=== PATIENT | male | born 1970 | race Caucasian/White ===

== ENCOUNTER 2018-10-18 16:14 | Emergency (ER) | payer OTHER ==
[~2018-10-18] VITALS: Ht 172.7 cm; Wt 73.1 kg
[~2018-10-18 16:14] MED LIST: ALPR1TAB2
[2018-10-18 16:32] VITALS: BP 155/111
--- NOTE | 2018-10-18 16:34 | NUR ---
PT AMBULATED TO BED 04.
--- NOTE | 2018-10-18 16:40 | NUR ---
BIB SELF. SEND BY PMD WITH ABNORMAL EKG, EXTREME FATIGUE, WEAKNESS, NON RADIATING LT SIDED CP X 5 DAYS. DENIES SOB. HX; HTN. RX; LISINOPRIL. PATIENT STATES PAIN OF 8/10 AT THIS TIME. PATIENT POSITIONED FOR COMFORT; HOB ELEVATED; BEDRAILS UP X2; BED DOWN. ER MD MADE AWARE OF PT STATUS.
[2018-10-18] MEDS ORDERED: NACL 0.9% 1,000 ML IV ONE (17:17)
--- NOTE | 2018-10-18 17:25 | NUR ---
X RAY AT BEDSIDE
[2018-10-18 17:39] LABS: BASOPHILS # (AUTO) 0.1 K/uL (0.00-0.22); BASOPHILS % (AUTO) 0.8 % (0.0-2.0); EOSINOPHILS # (AUTO) 0.1 K/uL (0-0.4); EOSINOPHILS % (AUTO) 1.9 % (0.0-4.0); HEMATOCRIT 40.1 % (36-52); HEMOGLOBIN 13.7 g/dL (12.0-18.0); LYMPHOCYTES # (AUTO) 1.8 K/uL (2.0-11.5); LYMPHOCYTES % (AUTO) 23.1 % (20.5-51.1); MEAN CORPUSCULAR HEMOGLOBIN 33 pg (27-31); MEAN CORPUSCULAR HGB CONC 34 g/dL (33-37); MEAN CORPUSCULAR VOLUME 95.4 fL (80-94); MONOCYTES # (AUTO) 0.5 K/uL (0.8-1.0); MONOCYTES % (AUTO) 6.5 % (1.7-9.3); NEUTROPHILS # (AUTO) 5.2 K/uL (1.8-7.7); NEUTROPHILS % (AUTO) 67.7 % (42.2-75.2); PLATELET COUNT (AUTO) 281 K/uL (140-450); RED CELL DISTRIBUTION WIDTH 12.4 % (11.6-13.7); WHITE BLOOD COUNT (AUTO) 7.6 K/uL (4.8-10.8)
[2018-10-18 17:46] LABS: APPEARANCE,URINE CLEAR (CLEAR); BILIRUBIN,URINE NEGATIVE (NEGATIVE); BLOOD, URINE NEGATIVE (NEGATIVE); COLOR,URINE YELLOW (YELLOW); LEUKOCYTE ESTERASE ,URINE NEGATIVE (NEGATIVE); NITRITE, URINE NEGATIVE (NEGATIVE); PH,URINE 6.5 (5.0-9.0); UGLUCOSE NEGATIVE (NEGATIVE)
[2018-10-18 17:46] LABS: CARBON DIOXIDE 29.9 mmol/L (21-32); CREATININE 0.9 mg/dL (0.7-1.3); POTASSIUM 3.9 mmol/L (3.5-5.1)
[2018-10-18 17:51] LABS: ALBUMIN 4.1 g/dL (3.4-5.0); MAGNESIUM 1.8 mg/dL (1.8-2.4); TOTAL BILIRUBIN 0.4 mg/dL (0.0-1.0)
[2018-10-18 17:51] LABS: BARBITURATE, URINE NEG. ng/ml (NEG <=200); BENZODIAZEPINE, URINE POS. ng/mL (NEG <=200); CANNABINOID, URINE NEG. ng/mL (NEG <=50); COCAINE, URINE NEG. ng/mL (NEG <=300); OPIATE, URINE NEG. ng/mL (NEG <=2000); PHENCYCLIDINE SCREEN,URINE NEG. ng/mL (NEG <=25)
[2018-10-18 18:03] LABS: URIC ACID 10.2 mg/dL (2.6-7.2)
[2018-10-18] MEDS ORDERED: FAMOTIDINE 20 MG/2 ML VIAL IVP ONE (18:55)
[2018-10-18] MEDS ORDERED: DEXAMETHASONE 10 MG/ML VIAL IVP ONE (18:55)
[2018-10-18 19:23] VITALS: BP 155/90
== END 2018-10-18 19:23 | disposition home or self-care (01) ==
LOC: MED 16:14
DX: R53.82 Chronic fatigue, unspecified (principal); M06.9 Rheumatoid arthritis, unspecified; I10 Essential (primary) hypertension; Z98.890 Other specified postprocedural states; Z79.899 Other long term (current) drug therapy
CPT/HCPCS: 36415; 71045; 80053; 80305; 81003; 82150; 83690; 83735; 84484; 84550; 85025; 93005; 96374; 96375; 99284; J1100; J3490; J7030; Q0092